=== PATIENT | female | born 1985 | race Caucasian/White ===

== ENCOUNTER 2022-11-11 02:31 | Emergency (ER) | payer OTHER, SELFPAY ==
--- NOTE | ~2022-11-11 | CT_ITS ---
EXAMINATION: CT ABDOMEN AND PELVIS WITH CONTRAST CLINICAL INFORMATION: Right upper quadrant and right flank pain. COMPARISON: None available. TECHNIQUE: Multidetector volumetric images were obtained from the superior aspect of the liver through the pubic symphysis following administration 85 mL of Omnipaque 350 intravenous contrast. Sagittal and coronal reformatted images were obtained on the technologist's workstation. Oral contrast: No This CT examination was performed using dose optimization techniques as appropriate, variously including the following: *Automated exposure control *Adjustment of mA and/or kV according to patient size (this includes techniques or standardized protocols for targeted exams where dose is matched to indication/reason for exam; i.e. extremities or head) *Use of iterative reconstruction technique DLP: 661 mGy-cm FINDINGS: LUNG BASES: The visualized lung bases are unremarkable. LIVER, GALLBLADDER, AND BILIARY TREE: The liver is normal in size, shape, and attenuation. No focal hepatic lesion. Mild intrahepatic biliary ductal dilatation is present. The gallbladder is unremarkable with no evidence of radiopaque gallstones, gallbladder wall thickening, or obvious pericholecystic inflammatory changes. PANCREAS: Unremarkable. SPLEEN: Unremarkable. ADRENAL GLANDS: Unremarkable. KIDNEYS AND URETERS: The kidneys are normal in size, shape, and attenuation. No hydronephrosis or hydroureter. 0.2 cm right midpole renal calculus is 8 cm from the posterior axillary line. BLADDER: Unremarkable. GASTROINTESTINAL TRACT: The small and large bowel are unremarkable. The appendix is unremarkable. ABDOMINAL WALL: No significant hernia is appreciated. LYMPH NODES: Normal. VASCULAR: Unremarkable. PELVIC VISCERA: The uterus and adnexa are unremarkable. OSSEOUS STRUCTURES: Unremarkable. CT/CT abdomen pelvis w IV con IMPRESSION: 1. No acute findings in the abdomen or pelvis. Mild intrahepatic biliary ductal dilatation is noted. No radiopaque gallstones are seen. 2. Nonobstructing 0.2 cm right midpole renal calculus. Fleischner guidelines were followed.
[2022-11-11 02:38] VITALS: BP 126/70; PULSE 54; RESP 16; TEMP 36.6; O2SAT 98; BMI 36.6
[2022-11-11] MEDS: Ondansetron ODT 4 MG TAB.RAPDIS TRANSLINGU (03:44)
[2022-11-11 03:55] LABS: Appearance Urine Cloudy; Color Urine Dark Yellow; Glucose Urine UA Negative (Negative); Leukocyte Esterase Urine Moderate (2+) (Negative); Nitrite Urine Negative (Negative); PH 5.5 (5.0-9.0); Specific Gravity - Urine >= 1.030 (1.005-1.025); UMIC TRIGGER UACC YES; Urine Blood Small (1+) (Negative); Urine Ketones Trace mg/dL (Negative); Urine Protein 30 (1+) mg/dL (Neg-Trace)
[2022-11-11 03:56] LABS: UPreg QC Valid YES; Urine Pregnancy NEGATIVE (NEGATIVE)
--- NOTE | 2022-11-11 03:56 | ED_ITS ---
HPI - Abdominal Pain General Chief Complaint: Back Pain/Injury Stated Complaint: nausea/vomiting Time Seen by Provider: 11/11/22 03:03 Source: patient Mode of arrival: ambulatory History of Present Illness HPI narrative: 37-year-old female without significant past medical history presents with complaints of right flank/upper back pain for 5 days though it significantly worsened this evening, she describes it as burning and denies any traumatic injury but states that it became much more worse and she began having several episodes of vomiting since 01:00 because of the pain. She denies any urinary symptoms or diarrhea. Related Data Previous Rx's Medication Instructions Recorded cefdinir 300 mg capsule 300 mg PO BID 7 days #14 caps 11/11/22 ondansetron 4 mg disintegrating 4 mg PO Q8H PRN nausea and 11/11/22 tablet vomiting #7 tabs Allergies Allergy/AdvReac Type Severity Reaction Status Date / Time Sulfa (Sulfonamide AdvReac Rash Verified 11/11/22 02:43 Antibiotics) Review of Systems Review of Systems Pertinent positives and negatives as stated in HPI PMFSH Past Medical History Source: nursing notes reviewed Social History Social History Advance Directives: No Advance Directives Information Provided: Yes Physical Exam ED Vital Signs: Vital Signs - 24 hr 11/11/22 02:38 11/11/22 04:12 11/11/22 05:57 Temperature 97.8 F 97.8 F 97.9 F Pulse Rate 54 51 54 Respiratory Rate 16 17 16 Blood Pressure 126/70 116/72 108/66 Pulse Oximetry 98 98 98 Oxygen Delivery Method Room Air Room Air Room Air BMI result Body Mass Index 36.6 VITAL SIGNS: Reviewed. GENERAL: Well developed, well nourished, in no acute distress. HEAD: Normocephalic/atraumatic EYES: PERRLA, EOMI EARS: Ext canals without abnormality LUNGS: Normal breath sounds. No adventitious sounds or accessory muscle use. SpO2<98> CARDIOVASCULAR: Regular rate and rhythm without noted murmurs ABDOMEN: Soft, right upper quadrant tenderness to palpation, White's positive, non-distended with bowel sounds, right-sided CVA tenderness MUSCULOSKELETAL: No tenderness, deformities, or effusions noted on gross inspection. EXTREMITIES: No cyanosis, clubbing or edema. SKIN: Inspection of the skin reveals no rashes NEUROLOGIC: Alert and oriented x 4. Strength and sensation to light touch were grossly intact x 4. Medical Decision Making Medical Decision Making [facility] Narrative: 37-year-old female with history and clinical presentation, DDX: Pyelonephritis, cholecystitis, renal colic, lower clinical suspicion for appendicitis or pancreatitis. INTERVENTIONS: Labs, UA/U preg, 1 L IV fluids, antiemetics, Toradol I reviewed all investigations and the hematologic indices are grossly within normal limits as there is no evidence of leukocytosis/left shift to indicate infection, there is no anemia or thrombocytopenia, taken together with the fact that patient is afebrile again lowering the likelihood of an infectious etiology. Chemistry indices demonstrate a subtle non-anion gap metabolic acidosis with a transaminemia the could be secondary to a gallstone lodged in the gallbladder duct although there is no corresponding elevation in bilirubin or elevation in alkaline phosphatase making the likelihood of fatty liver more likely. Patient denies any use of alcohol. CT scan without evidence to suggest appendicitis/renal colic/cholecystitis and otherwise my interpretation is in agreement with radiology's impression. It is my interpretation after review the urinalysis and clinical findings of CVA tenderness that patient has a pyelonephritis. Patient received initial antibiotics here in the emergency room and then was discharged on remaining course. Differential Diagnosis Differential Diagnoses: The differential diagnosis associated with the presentation includes Please see the discussion above Admission/Observation Consideration of admission/observation: Escalation of care including admission/ observation considered Please see the discussion above Lab Data [facility] Lab Attestation statement: I reviewed the patient's lab results. Please see the discussion above 11/11/22 04:10 11/11/22 04:10 Labs: Lab Results 11/11/22 11/11/22 11/11/22 Range/Units 03:45 03:45 04:10 WBC 5.9 (4.8-10.8) X10*3/uL RBC 4.13 L (4.20-5.50) X10*6/uL Hgb 12.7 (12.0-16.0) g/dl Hct 37.5 (37.0-47.0) % MCV 90.8 (80.0-98.0) fL MCH 30.8 (27.0-33.0) pg MCHC 33.9 (31.0-35.0) g/dl RDW 13.5 (11.0-16.0) % Plt Count 207 (160-400) X10*3/uL MPV 12.4 H (9.4-12.3) fL Immature Gran % (Auto) 0.2 (0.0-0.4) % Neut % (Auto) 68.3 (45-73) % Lymph % (Auto) 22.0 (20-40) % [place] % (Auto) 6.6 (2-11) % Eos % (Auto) 2.4 (0-4) % Baso % (Auto) 0.5 (0-2) % Lymph # (Auto) 1.3 (1.2-4.9) X10*3/uL [place] # (Auto) 0.4 (0.1-1.2) X10*3/uL Eos # (Auto) 0.1 (0.0-0.4) X10*3/uL Baso # (Auto) 0.0 (0.0-0.2) X10*3/uL Abs Immat Gran (auto) 0.01 (0.00-0.03) X10*3/uL Absolute Neuts (auto) 4.0 (2.0-8.3) x10*3/uL Absolute Nucleated RBC 0.000 (0.0-0.012) X10*3/uL Nucleated RBC % (auto) 0.0 (0.0-0.2) /100WBC Sodium (135-145) mmol/L Potassium (3.3-5.1) mmol/L Chloride (96-108) mmol/L Carbon Dioxide (22-29) mmol/L Anion Gap (12-20) BUN (9-16) mg/dL Creatinine (0.5-1.4) mg/dL Estim Creat Clear Calc Estimated GFR Random Glucose (60-115) mg/dL Calcium (8.4-10.2) mg/dL Total Bilirubin (0.0-1.0) mg/dL AST (5-31) U/L ALT (0-31) U/L Alkaline Phosphatase (39-117) U/L Total Protein (6.5-8.0) g/dL Albumin (3.5-5.0) g/dL Urine Color Dark Yellow Urine Appearance Cloudy Urine pH 5.5 (5.0-9.0) Ur Specific [place] >= 1.030 H (1.005-1.025) Urine Protein 30 (1+) H (Neg-Trace) mg/dL Urine Glucose (UA) Negative (Negative) mg/dL Urine Ketones Trace (Negative) mg/dL Urine Blood Small (1+) H (Negative) Urine Nitrite Negative (Negative) Ur Leukocyte Esterase Moderate (2+) H (Negative) Urine RBC 6-10 H (0-2) /HPF Urine WBC 21-50 H (0-5) /HPF Ur Squamous Epith Cells 11-20 (0-2) /HPF Calcium Oxalate Crystal Present Urine Bacteria 4+ (None Seen) Hyaline Casts 0-2 (0-2) /LPF Urine Test NEGATIVE (NEGATIVE) 11/11/22 Range/Units 04:10 WBC (4.8-10.8) X10*3/uL RBC (4.20-5.50) X10*6/uL Hgb (12.0-16.0) g/dl Hct (37.0-47.0) % MCV (80.0-98.0) fL MCH (27.0-33.0) pg MCHC (31.0-35.0) g/dl RDW (11.0-16.0) % Plt Count (160-400) X10*3/uL MPV (9.4-12.3) fL Immature Gran % (Auto) (0.0-0.4) % Neut % (Auto) (45-73) % Lymph % (Auto) (20-40) % [place] % (Auto) (2-11) % Eos % (Auto) (0-4) % Baso % (Auto) (0-2) % Lymph # (Auto) (1.2-4.9) X10*3/uL [place] # (Auto) (0.1-1.2) X10*3/uL Eos # (Auto) (0.0-0.4) X10*3/uL Baso # (Auto) (0.0-0.2) X10*3/uL Abs Immat Gran (auto) (0.00-0.03) X10*3/uL Absolute Neuts (auto) (2.0-8.3) x10*3/uL Absolute Nucleated RBC (0.0-0.012) X10*3/uL Nucleated RBC % (auto) (0.0-0.2) /100WBC Sodium 141 (135-145) mmol/L Potassium 4.2 (3.3-5.1) mmol/L Chloride 110 H (96-108) mmol/L Carbon Dioxide 19 L (22-29) mmol/L Anion Gap 16 (12-20) BUN 11 (9-16) mg/dL Creatinine 0.81 (0.5-1.4) mg/dL Estim Creat Clear Calc 103.4 Estimated GFR > 60 Random Glucose 110 (60-115) mg/dL Calcium 9.1 (8.4-10.2) mg/dL Total Bilirubin 0.9 (0.0-1.0) mg/dL AST 274 H (5-31) U/L ALT 183 H (0-31) U/L Alkaline Phosphatase 114 (39-117) U/L Total Protein 7.6 (6.5-8.0) g/dL Albumin 3.9 (3.5-5.0) g/dL Urine Color Urine Appearance Urine pH (5.0-9.0) Ur Specific [place] (1.005-1.025) Urine Protein (Neg-Trace) mg/dL Urine Glucose (UA) (Negative) mg/dL Urine Ketones (Negative) mg/dL Urine Blood (Negative) Urine Nitrite (Negative) Ur Leukocyte Esterase (Negative) Urine RBC (0-2) /HPF Urine WBC (0-5) /HPF Ur Squamous Epith Cells (0-2) /HPF Calcium Oxalate Crystal Urine Bacteria (None Seen) Hyaline Casts (0-2) /LPF Urine Test (NEGATIVE) Radiology Impression Radiologist Impression: No appendicitis, renal colic, cholecystitis, otherwise my interpretation is in agreement with radiology's impression. Medications Administered Discontinued Medications Generic Name Dose Route Start Last Admin Trade Name Freq PRN Reason Stop Dose Admin Sodium Chloride 1,000 mls @ 999 mls/hr 11/11/22 04:00 11/11/22 05:12 Ns IV 11/11/22 05:00 Infused .Q1H1M JERAMY Infusion Iohexol 85 ml 11/11/22 04:57 11/11/22 04:58 Iohexol 350 Mg/Ml 100 Ml Infus..Btl IV 11/11/22 04:58 85 ml ONCE ONE Administration Ketorolac Tromethamine 15 mg 11/11/22 04:00 11/11/22 04:16 Ketorolac Tromethamine 30 Mg/Ml Vial IVPUSH 11/11/22 04:01 15 mg ONCE ONE Administration Ondansetron HCl 4 mg 11/11/22 02:44 11/11/22 03:44 Ondansetron Odt 4 Mg Tab.Rapdis TRANSLINGU 11/11/22 02:45 4 mg ONCE ONE Administration Critical Care Time Critical Care Time Critical Care Time: Yes Total Critical Care Time: 30 Attestation: I personally attest to this time spent taking care of the patient. Discharge Plan Discharge Clinical Impression: Pyelonephritis Patient Disposition: Home, Self-Care Instructions: Kidney Infection (ED) Additional Instructions: 1. Increase the amount of water that you drink. 2. Complete the entire course of antibiotics as ordered. 3. You have also been given a prescription for antinausea medication. 4. Please follow-up with your primary care provider. Return to the ER for any worsening symptoms. Prescriptions: New cefdinir 300 mg capsule 300 mg PO BID 7 Days Qty: 14 0RF ondansetron 4 mg tablet,disintegrating 4 mg PO Q8H PRN (Reason: nausea and vomiting) Qty: 7 0RF
[2022-11-11 04:07] LABS: Bacteria Urine 4+ (None Seen); Calcium Oxalate Crystals Urine Present; Hyaline Casts Urine 0-2 /LPF (0-2); UACC Culture Trigger YES; WBC Urine 21-50 /HPF (0-5)
[2022-11-11] MEDS: 0.9 % Sodium Chloride 1,000 ML 999 ML IV (04:11)
[2022-11-11 04:12] VITALS: BP 116/72; PULSE 51; RESP 17; TEMP 36.6; O2SAT 98
[2022-11-11 04:16] LABS: MANUAL DIFF FLAG NO
[2022-11-11] MEDS: Ketorolac Tromethamine 30 MG/ML VIAL 15 MG IVPUSH (04:16)
[2022-11-11 04:17] LABS: Basophils Percent Auto 0.5 % (0-2); Eosinophils Absolute Auto 0.1 X10*3/uL (0.0-0.4); Eosinophils Percent Auto 2.4 % (0-4); Hematocrit 37.5 % (37.0-47.0); Hemoglobin 12.7 g/dl (12.0-16.0); Imm Gran Abs Auto 0.01 X10*3/uL (0.00-0.03); Imm Gran Pct Auto 0.2 % (0.0-0.4); Lymphocytes Absolute Auto 1.3 X10*3/uL (1.2-4.9); Mean Corpuscular HGB Conc 33.9 g/dl (31.0-35.0); Mean Corpuscular Hemoglobin 30.8 pg (27.0-33.0); Mean Corpuscular Volume 90.8 fL (80.0-98.0); Mean Platelet Volume 12.4 fL (9.4-12.3); Monocytes Absolute Auto 0.4 X10*3/uL (0.1-1.2); Monocytes Percent Auto 6.6 % (2-11); Neutrophils Percent Auto 68.3 % (45-73); Platelet Count 207 X10*3/uL (160-400); Red Blood Count 4.13 X10*6/uL (4.20-5.50); Red Cell Distribution Width 13.5 % (11.0-16.0); White Blood Count 5.9 X10*3/uL (4.8-10.8)
[2022-11-11 04:36] LABS: Alanine Aminotransferase 183 U/L (0-31); Albumin Level 3.9 g/dL (3.5-5.0); Alkaline Phosphatase 114 U/L (39-117); Anion Gap 16 (12-20); Aspartate Amino Transferase 274 U/L (5-31); Bilirubin Total 0.9 mg/dL (0.0-1.0); Blood Urea Nitrogen 11 mg/dL (9-16); Calcium 9.1 mg/dL (8.4-10.2); Carbon Dioxide 19 mmol/L (22-29); Chloride 110 mmol/L (96-108); Creatinine Clr Calc Pharmacy 103.4; Estimated Glomerular Filt Rate > 60; Glucose Random 110 mg/dL (60-115); Potassium 4.2 mmol/L (3.3-5.1); Sodium 141 mmol/L (135-145); Total Protein 7.6 g/dL (6.5-8.0)
[2022-11-11] MEDS: iohexoL 350 MG/ML 100 ML INFUS..BTL 85 ML IV (04:58)
[2022-11-11 05:57] VITALS: BP 108/66; PULSE 54; RESP 16; TEMP 36.6; O2SAT 98
[2022-11-11] MEDS: cefTRIAXone sodium 1 GM in 0.9 % Sodium Chloride 50 ML IV (06:38)
== END 2022-11-11 07:06 | disposition home or self-care (01) ==
PROVIDERS: Emergency Provider Student in an Organized Health Care Education/Training Program
DX: N12 Tubulo-interstitial nephritis, not specified as acute or chronic (principal); R10.2 Pelvic and perineal pain; Z79.899 Other long term (current) drug therapy
CPT/HCPCS: 36415; 74177; 80053; 81001; 81025; 85025; 87086; 96361; 96365; 96375; 99284; 99285; J0696; J1885; Q9967

== ENCOUNTER 2023-02-15 15:27 | Emergency (ER) | payer OTHER, SELFPAY ==
--- NOTE | ~2023-02-15 | US_ITS ---
EXAMINATION: US ABDOMEN LIMITED CLINICAL INFORMATION: Right upper quadrant, epigastric and flank pain. COMPARISON: CT of 11/11/2022 TECHNIQUE: Real-time imaging of the right upper quadrant abdominal viscera. FINDINGS: PANCREAS: Largely obscured by habitus and bowel gas. LIVER: Normal. The liver is normal in size. The liver contour is normal. Parenchymal echogenicity is normal. No focal hepatic lesion. There is no intrahepatic biliary duct dilatation seen. GALLBLADDER: There are multiple calculi within the gallbladder. The gallbladder wall is thickened up to 5 mm. No pericholecystic edema or sonographic White sign is evident. COMMON BILE DUCT: Normal in caliber measuring 0.4 cm in diameter. RIGHT KIDNEY: Normal. No hydronephrosis. There may be a 4 mm nonobstructing right renal mid pole calculus. (A calculus was visualized in the right mid pole on CT of 11/11/2022). The kidney measures 11.2 cm in maximum dimension. FREE FLUID: None. US/US abdomen limited IMPRESSION: 1. Cholelithiasis with gallbladder wall thickening suggesting at least chronic cholecystitis. 2. Question nonobstructing 4 mm right renal midpole calculus.
[2023-02-15 15:30] VITALS: BP 112/64; PULSE 64; RESP 16; TEMP 36.3; O2SAT 97; BMI 34.3
--- NOTE | 2023-02-15 15:30 | ED_ITS ---
HPI - Abdominal Pain General Chief Complaint: Abdominal Pain Stated Complaint: Flank pain Time Seen by Provider: 02/15/23 18:55 Source: patient Mode of arrival: ambulatory History of Present Illness HPI narrative: 37-year-old female with presentation for right flank/abdominal discomfort this started today with mild nausea but not down eyes any fevers or chills, denies any urinary symptoms. Related Data Previous Rx's Medication Instructions Recorded cefdinir 300 mg capsule 300 mg PO BID 7 days #14 caps 11/11/22 ondansetron 4 mg disintegrating 4 mg PO Q8H PRN nausea and 11/11/22 tablet vomiting #7 tabs cefdinir 300 mg capsule 300 mg PO BID 7 days #14 caps 02/15/23 ondansetron 4 mg disintegrating 4 mg PO Q8H PRN nausea and 02/15/23 tablet vomiting #10 tabs Allergies Allergy/AdvReac Type Severity Reaction Status Date / Time Sulfa (Sulfonamide AdvReac Rash Verified 11/11/22 02:43 Antibiotics) Review of Systems Review of Systems Pertinent positives and negatives as stated in HPI PMFSH Past Medical History Source: nursing notes reviewed Physical Exam ED Vital Signs: Vital Signs - 24 hr 02/15/23 15:30 02/15/23 19:28 Temperature 97.4 F Pulse Rate 64 54 Respiratory Rate 16 18 Blood Pressure 112/64 104/56 L Pulse Oximetry 97 100 Oxygen Delivery Method Room Air Room Air BMI result Body Mass Index 34.3 VITAL SIGNS: Reviewed. GENERAL: Well developed, well nourished, in no acute distress. HEAD: Normocephalic/atraumatic EYES: PERRLA, EOMI EARS: Ext canals without abnormality NOSE: Nares patent bilateral OROPHARYNX: no oral lesions noted, posterior pharynx clear NECK: Supple, no adenopathy LUNGS: Normal breath sounds. No adventitious sounds or accessory muscle use. SpO2<100> CARDIOVASCULAR: Regular rate and rhythm without noted murmurs ABDOMEN: Soft, non-tender, non-distended with bowel sounds, right CVA tenderness. MUSCULOSKELETAL: No tenderness, deformities, or effusions noted on gross inspection. EXTREMITIES: No cyanosis, clubbing or edema. SKIN: Inspection of the skin reveals no rashes NEUROLOGIC: Alert and oriented x 4. Strength and sensation to light touch were grossly intact x 4. Course Course Course Narrative: RME: 37-year-old female with a past medical history of pyelonephritis presenting to the ED complaining c/o RLQ/RUQ abd pain and R flank pain x today. +nausea denies diarrhea, urinary sx Patient on phone in triage during entire eval. Abdomen soft +RUQ/epigastric ttp Labs, UA, US ordered ordered Full HPI, ROS and PE to be performed by primary ED provider. Medical Decision Making Medical Decision Making [facility] Narrative: 37-year-old female with history and clinical presentation, DDX: Cholecystitis, pancreatitis, gastritis, renal colic, pyelonephritis. I reviewed all investigations and hematologic indices are negative for leukocytosis or left shift, no thrombocytopenia and no anemia. Chemistry indices negative for KENROY and there is no evidence of electrolyte or liver enzyme abnormalities, lipase is within normal limits and beta-hCG is undetectable. Urinalysis is significant for infection with positive nitrites and leukocyte esterase as well as bacteria and white blood cells. Ultrasound did demonstrate cholelithiasis and thickened gallbladder wall without pericholecystic fluid in so suspect that this is chronic in nature and patient will be given a referral to follow-up with General surgery for elective removal. In addition, a renal stone was noted but otherwise ultrasound negative for acute findings. My interpretation is that patient has a mild pyelonephritis given the location of the pain within nausea in the positive urinary tract infection. All results and findings discussed with her at bedside, she received initial antibiotics and then was discharged with remaining course. Differential Diagnosis Differential Diagnoses: The differential diagnosis associated with the presentation includes Please see the discussion above Admission/Observation Consideration of admission/observation: Escalation of care including admission/observation considered Please see the discussion above Lab Data [facility] Lab Attestation statement: I reviewed the patient's lab results. Please see the discussion above 02/15/23 16:40 02/15/23 16:40 Labs: Lab Results 02/15/23 02/15/23 Range/Units 16:34 16:40 WBC 9.1 (4.8-10.8) X10*3/uL RBC 3.77 L (4.20-5.50) X10*6/uL Hgb 12.0 (12.0-16.0) g/dl Hct 35.5 L (37.0-47.0) % MCV 94.2 (80.0-98.0) fL MCH 31.8 (27.0-33.0) pg MCHC 33.8 (31.0-35.0) g/dl RDW 13.7 (11.0-16.0) % Plt Count 223 (160-400) X10*3/uL MPV 12.9 H (9.4-12.3) fL Immature Gran % (Auto) 0.2 (0.0-0.4) % Neut % (Auto) 65.0 (45-73) % Lymph % (Auto) 27.0 (20-40) % [place] % (Auto) 4.8 (2-11) % Eos % (Auto) 2.6 (0-4) % Baso % (Auto) 0.4 (0-2) % Lymph # (Auto) 2.5 (1.2-4.9) X10*3/uL [place] # (Auto) 0.4 (0.1-1.2) X10*3/uL Eos # (Auto) 0.2 (0.0-0.4) X10*3/uL Baso # (Auto) 0.0 (0.0-0.2) X10*3/uL Abs Immat Gran (auto) 0.02 (0.00-0.03) X10*3/uL Absolute Neuts (auto) 5.9 (2.0-8.3) x10*3/uL Absolute Nucleated RBC 0.000 (0.0-0.012) X10*3/uL Nucleated RBC % (auto) 0.0 (0.0-0.2) /100WBC Sodium 143 (135-145) mmol/L Potassium 4.2 (3.3-5.1) mmol/L Chloride 110 H (96-108) mmol/L Carbon Dioxide 24 (22-29) mmol/L Anion Gap 13 (12-20) BUN 11 (9-16) mg/dL Creatinine 0.87 (0.5-1.4) mg/dL Estim Creat Clear Calc 100.0 Estimated GFR > 60 Random Glucose 95 (60-115) mg/dL Calcium 9.8 D (8.4-10.2) mg/dL Magnesium 2.0 (1.6-2.6) mg/dL Total Bilirubin 0.2 (0.0-1.0) mg/dL Direct Bilirubin < 0.2 (0.0-0.5) mg/dL AST 17 (5-31) U/L ALT 34 H (0-31) U/L Alkaline Phosphatase 112 (39-117) U/L Total Protein 7.6 (6.5-8.0) g/dL Albumin 4.0 (3.5-5.0) g/dL Lipase 31 (8-78) U/L Beta HCG, Quant < 2 mIU/mL Urine Color Yellow Urine Appearance Turbid Urine pH 5.5 (5.0-9.0) Ur Specific [place] 1.025 (1.005-1.025) Urine Protein Trace (Neg-Trace) mg/dL Urine Glucose (UA) Negative (Negative) mg/dL Urine Ketones Trace (Negative) mg/dL Urine Blood Negative (Negative) Urine Nitrite Positive H (Negative) Ur Leukocyte Esterase Moderate (2+) H (Negative) Urine RBC 3-5 H (0-2) /HPF Urine WBC >50 H (0-5) /HPF Ur Squamous Epith Cells >20 (0-2) /HPF Urine Bacteria 4+ (None Seen) Hyaline Casts 3-5 (0-2) /LPF Radiology Impression Discussion of test interpretation with radiology: I have reviewed the radiologist's reading. Radiologist Impression: Please see the discussion above External Record Review External record reviewed: Outpatient record, Prior outpatient labs and Prior outpatient radiology Discharge Plan Discharge Clinical Impression: Pyelonephritis, Renal calculus, Cholelithiasis Patient Disposition: Home, Self-Care Instructions: Gallstones (ED), Kidney Infection (ED) Additional Instructions: 1. Recommend [id number] Tylenol/ibuprofen as needed for pain control. Increase the amount of water intake. 2. Please complete the entire course of antibiotics as prescribed. 3. Follow-up with your primary care doctor in the next 2-3 days for re- evaluation further outpatient management. 4. You have been provided with a referral to the general surgeon regarding the stones in your gallbladder for evaluation and to schedule possible surgery. Return to the ER for any worsening of your symptoms. Prescriptions: New cefdinir 300 mg capsule 300 mg PO BID 7 Days Qty: 14 0RF ondansetron 4 mg tablet,disintegrating 4 mg PO Q8H PRN (Reason: nausea and vomiting) Qty: 10 0RF No Action cefdinir 300 mg capsule 300 mg PO BID 7 Days Qty: 14 0RF ondansetron 4 mg tablet,disintegrating 4 mg PO Q8H PRN (Reason: nausea and vomiting) Qty: 7 0RF Referrals: Esteban Fernández MD [Physician] -
[2023-02-15 16:46] LABS: MANUAL DIFF FLAG NO
[2023-02-15 16:52] LABS: Appearance Urine Turbid; Color Urine Yellow; Glucose Urine UA Negative (Negative); Leukocyte Esterase Urine Moderate (2+) (Negative); Nitrite Urine Positive (Negative); PH 5.5 (5.0-9.0); Specific Gravity - Urine 1.025 (1.005-1.025); UMIC TRIGGER UACC YES; Urine Blood Negative (Negative); Urine Ketones Trace mg/dL (Negative); Urine Protein Trace mg/dL (Neg-Trace)
[2023-02-15 16:57] LABS: Bacteria Urine 4+ (None Seen); Squamous Epithelial Cell Urine >20 /HPF (0-2); UACC Culture Trigger YES; WBC Urine >50 /HPF (0-5)
[2023-02-15 16:58] LABS: Basophils Percent Auto 0.4 % (0-2); Eosinophils Absolute Auto 0.2 X10*3/uL (0.0-0.4); Eosinophils Percent Auto 2.6 % (0-4); Hematocrit 35.5 % (37.0-47.0); Imm Gran Abs Auto 0.02 X10*3/uL (0.00-0.03); Imm Gran Pct Auto 0.2 % (0.0-0.4); Lymphocytes Absolute Auto 2.5 X10*3/uL (1.2-4.9); Mean Corpuscular HGB Conc 33.8 g/dl (31.0-35.0); Mean Corpuscular Hemoglobin 31.8 pg (27.0-33.0); Mean Corpuscular Volume 94.2 fL (80.0-98.0); Mean Platelet Volume 12.9 fL (9.4-12.3); Monocytes Absolute Auto 0.4 X10*3/uL (0.1-1.2); Monocytes Percent Auto 4.8 % (2-11); Neutrophils Absolute Auto 5.9 x10*3/uL (2.0-8.3); Platelet Count 223 X10*3/uL (160-400); Red Blood Count 3.77 X10*6/uL (4.20-5.50); Red Cell Distribution Width 13.7 % (11.0-16.0); White Blood Count 9.1 X10*3/uL (4.8-10.8)
[2023-02-15 17:10] LABS: Alanine Aminotransferase 34 U/L (0-31); Alkaline Phosphatase 112 U/L (39-117); Anion Gap 13 (12-20); Aspartate Amino Transferase 17 U/L (5-31); Bilirubin Direct < 0.2 mg/dL (0.0-0.5); Bilirubin Total 0.2 mg/dL (0.0-1.0); Blood Urea Nitrogen 11 mg/dL (9-16); Calcium 9.8 mg/dL (8.4-10.2); Carbon Dioxide 24 mmol/L (22-29); Chloride 110 mmol/L (96-108); Estimated Glomerular Filt Rate > 60; Glucose Random 95 mg/dL (60-115); Lipase 31 U/L (8-78); Potassium 4.2 mmol/L (3.3-5.1); Sodium 143 mmol/L (135-145); Total Protein 7.6 g/dL (6.5-8.0)
[2023-02-15 17:13] LABS: HCG Quantitative < 2 mIU/mL
[2023-02-15 19:28] VITALS: BP 104/56; PULSE 54; RESP 18; O2SAT 100
[2023-02-15] MEDS: cefuroxime axetiL 500 MG TABLET PO (20:17)
[2023-02-15] MEDS: Acetaminophen 325 MG TABLET 975 MG PO (20:17)
[2023-02-15] MEDS: Ibuprofen 400 MG TABLET PO (20:17)
[2023-02-15] MEDS: Ondansetron ODT 4 MG TAB.RAPDIS TRANSLINGU (20:17)
== END 2023-02-15 20:19 | disposition home or self-care (01) ==
LOC: HO.ED 20:06
PROVIDERS: Physician Assistant; Emergency Provider Student in an Organized Health Care Education/Training Program
DX: N20.0 Calculus of kidney (principal); K80.20 Calculus of gallbladder without cholecystitis without obstruction
CPT/HCPCS: 36415; 76705; 80048; 80076; 81001; 83690; 83735; 84702; 85025; 87086; 87088; 87186; 99284

== ENCOUNTER 2023-02-16 15:24 | Outpatient (AMB) | payer OTHER, SELFPAY ==
[2023-02-16 15:25] VITALS: BP 123/60; PULSE 59; BMI 33.9
--- NOTE | 2023-02-16 15:25 | A.OFFVIS_ITS ---
Intake Vital Signs 02/16/23 15:25 Height 5 ft 5 in Weight 204 lb BMI 33.9 BP 123/60 Blood Pressure Location Rt brachial Position Sitting Pulse 59 Intake Visit Reasons: Cholelithiasis, 02/15/23 [facility] [place] Intake Note: This patient presents [place] [facility] [place] for cholelithiasis. Patient c/o; reports epigastric pain radiates RUQ , reports not able to eat all of the foods she usually eats because they cause postprandial pain, reports diarrhea. 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 She went to the ER yesterday because of right upper quadrant pain and tenderness. She had an ultrasound done showing gallstones without signs of cholecystitis. Her LFTs were within normal. She was therefore instructed to see me in the office for surgical consult. She says she does not have any primary care physician at this time. She denies other medical problems. She also was diagnosed to have a UTI in her ER visit yesterday and was started on oral antibiotics She denies dysuria however. She does state that she has had episodes of pain on the right upper quadrant on and off for the past 6 months or so. [facility] Medical History (Updated 02/16/23 @ 15:50 by Rubén Stoll MD) Family history of breast cancer Morbid obesity Gallstones Surgical History (Updated 02/16/23 @ 15:32 by ASHIA Cohen) History of tubal ligation Family History Maternal Aunt Breast cancer Maternal Aunt Breast cancer Review of Systems Const Denies chills and Denies fever(s) Card Denies chest pain, Denies dyspnea and Denies dyspnea on exertion Resp Denies cough, Denies dyspnea and Denies dyspnea on exertion GI Denies hematochezia and Denies change in bowel habits Denies hematuria Musc Denies back pain and Denies limited range of motion Neuro Denies focal weakness and Denies convulsions Psych Denies depression and Denies mood swings Physical Exam Vital Signs: Last Vital Signs Pulse 59 02/16/23 15:25 BP 123/60 02/16/23 15:25 BMI result Body Mass Index 33.9 Const General: comfortable and no acute distress Orientation/consciousness: patient oriented x3 Neck Neck: Yes no lymphadenopathy Resp Auscultation: clear to auscultation bilaterally Cardio Rhythm: regular rhythm GI Other: No White's sign Palpation (GI): Soft to palpation, nontender and no guarding Neuro General: patient oriented x3 Assessment & Plan Assessment & Plan (1) Gallstones: Code(s): K80.20 - Calculus of gallbladder without cholecystitis without obstruction Plan: I explained to her the technique of laparoscopic cholecystectomy and possible conversion to an open cholecystectomy. I reviewed the risks including but not limited to bleeding, infections, injury to other organs including bowel, liver, bile ducts, retained stones, bile leak, inherent risks of anesthesia, as well as the benefits and alternatives. She understands that in view of her relative higher BMI, she presents with higher perioperative risks. She does have symptoms from her gallstones so she wants to proceed. She says that she understands the above well. (2) Morbid obesity: Code(s): E66.01 - Morbid (severe) obesity due to excess calories Plan: Her BMI is high. I had advised her on the benefits of weight loss She does not have a primary care physician at this time either so we will assist her with establishing care with 1 of our doctors. (3) Family history of breast cancer: Code(s): Z80.3 - Family history of malignant neoplasm of breast Plan: She also says that 2 of her maternal aunts were diagnosed to have breast cancer before the age of 50. I therefore explained to her the option of proceeding with genetic testing. I explained to her the potential implications of this test to herself and her family. She says she is interested so we will schedule her for genetic counseling and testing here in the office. Coding Level of Care Code New Pt Level 4 (70225) Diagnoses Gallstones K80.20 Morbid obesity E66.01 Family history of breast cancer Z80.3
== END 2023-02-16 15:45 | disposition home or self-care (01) ==
PROVIDERS: Visit Provider Surgery
DX: K80.20 Calculus of gallbladder without cholecystitis without obstruction (principal); E66.01 Morbid (severe) obesity due to excess calories; Z80.3 Family history of malignant neoplasm of breast
CPT/HCPCS: 99204

== ENCOUNTER → 2023-02-16 15:24 | Outpatient (BNVA) | payer OTHER, SELFPAY | PROVIDERS: Visit Provider Surgery | DX: K80.20 Calculus of gallbladder without cholecystitis without obstruction (principal); E66.01 Morbid (severe) obesity due to excess calories; Z68.33 Body mass index [BMI] 33.0-33.9, adult; Z80.3 Family history of malignant neoplasm of breast | CPT/HCPCS: 99202 ==

== ENCOUNTER 2023-05-25 17:39 | Emergency (ER) | payer OTHER, SELFPAY ==
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
--- NOTE | ~2023-05-25 | CT_ITS ---
EXAMINATION: CT CERVICAL SPINE WITHOUT CONTRAST CLINICAL INFORMATION: Fall COMPARISON: None available. TECHNIQUE: Axial images through the cervical spine without IV contrast. Sagittal and coronal reconstructions obtained on the technologist workstation. This CT examination was performed using dose optimization techniques as appropriate, variously including the following: *Automated exposure control *Adjustment of mA and/or kV according to patient size (this includes techniques or standardized protocols for targeted exams where dose is matched to indication/reason for exam; i.e. extremities or head) *Use of iterative reconstruction technique DLP: 489 mGy-cm FINDINGS: Bone alignment is normal. No fracture or dislocation. Normal disc spaces. Normal prevertebral soft tissues. Shotty bilateral cervical lymphadenopathy. Lung apices are clear CT/CT cervical spine wo IV con IMPRESSION: Unremarkable examination. Fleischner guidelines were followed.
[2023-05-25 18:07] VITALS: BP 126/59; PULSE 61; RESP 18; TEMP 37.3; O2SAT 100; BMI 36.6
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
[2023-05-25 19:16] VITALS: BP 120/59; PULSE 60; RESP 18; O2SAT 99
--- NOTE | 2023-05-25 19:26 | PC.NURSE ---
Assumed care of pt. Pt in no acute distress at this time,. Declined blood draw for , states had tubes tied, will sign to forgo testing for CT.
--- NOTE | 2023-05-25 19:27 | MHC.EDTECH ---
LEVY ROJAS SAID NOT TO DRAW PATIENT LABS .
--- NOTE | 2023-05-25 19:35 | MHC.EDTECH ---
Per RN hld off on lab draw
[2023-05-25 20:00] VITALS: BP 124/54; PULSE 62; RESP 18; O2SAT 99
== END 2023-05-25 22:36 | disposition home or self-care (01) ==
PROVIDERS: Emergency Provider Student in an Organized Health Care Education/Training Program
DX: S01.81XA Laceration without foreign body of other part of head, initial encounter (principal); W26.8XXA Contact with other sharp object(s), not elsewhere classified, initial encounter; Y93.89 Activity, other specified; Y92.810 Car as the place of occurrence of the external cause; Y99.9 Unspecified external cause status
CPT/HCPCS: 12011; 70450; 72125; 99284

== ENCOUNTER 2023-08-27 13:35 | Emergency (ER) | payer OTHER, SELFPAY ==
[2023-08-27 13:46] VITALS: BP 115/60; BP 130/94; PULSE 63; PULSE 68; RESP 18; TEMP 36.8; O2SAT 100; O2SAT 98; BMI 38.4
[2023-08-27 14:18] LABS: MANUAL DIFF FLAG NO
[2023-08-27 14:19] LABS: Basophils Percent Auto 0.4 % (0-2); Eosinophils Absolute Auto 0.2 X10*3/uL (0.0-0.4); Eosinophils Percent Auto 2.1 % (0-4); Hematocrit 39.6 % (37.0-47.0); Hemoglobin 13.5 g/dl (12.0-16.0); Imm Gran Abs Auto 0.02 X10*3/uL (0.00-0.03); Imm Gran Pct Auto 0.2 % (0.0-0.4); Lymphocytes Absolute Auto 1.8 X10*3/uL (1.2-4.9); Lymphocytes Percent Auto 21.7 % (20-40); Mean Corpuscular HGB Conc 34.1 g/dl (31.0-35.0); Mean Corpuscular Hemoglobin 31.3 pg (27.0-33.0); Mean Corpuscular Volume 91.7 fL (80.0-98.0); Monocytes Absolute Auto 0.4 X10*3/uL (0.1-1.2); Monocytes Percent Auto 4.3 % (2-11); Neutrophils Percent Auto 71.3 % (45-73); Platelet Count 231 X10*3/uL (160-400); Red Blood Count 4.32 X10*6/uL (4.20-5.50); White Blood Count 8.4 X10*3/uL (4.8-10.8)
[2023-08-27 14:33] LABS: Alanine Aminotransferase 9 U/L (0-31); Alkaline Phosphatase 85 U/L (39-117); Anion Gap 16 (12-20); Aspartate Amino Transferase 13 U/L (5-31); Bilirubin Total 0.4 mg/dL (0.0-1.0); Blood Urea Nitrogen 14 mg/dL (9-16); Calcium 9.4 mg/dL (8.4-10.2); Carbon Dioxide 24 mmol/L (22-29); Chloride 104 mmol/L (96-108); Creatinine Clr Calc Pharmacy 98.6; Estimated Glomerular Filt Rate > 60; Ethanol < 10 mg/dL; Glucose Random 94 mg/dL (60-115); Potassium 3.7 mmol/L (3.3-5.1); Sodium 140 mmol/L (135-145); Total Protein 8.1 g/dL (6.5-8.0)
--- NOTE | 2023-08-27 15:53 | PC.NURSE ---
pt reports that they do not take any medications at home
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
--- NOTE | 2023-08-27 16:12 | ED_ITS ---
HPI - Psych General Chief Complaint: Psychiatric Symptoms Stated Complaint: SI Time Seen by Provider: 08/27/23 14:13 Source: patient and EMS Mode of arrival: EMS Limitations: no limitations History of Present Illness HPI Narrative: Patient is a 37-year-old female who presents emergency department via EMS for evaluation. Patient reportedly made suicidal statements in front of police. When speaking with patient she reports that she has an 18-year-old son at home with her and she has 4 other sons who are currently in DCF care. Reportedly have been in DCF care for the past 5 years and she has gone back and forth with having custody and then having them taken away again. She states that she was advised by her corporation lawyer that she has an upcoming court date for Tuesday. However, she received a phone call from her 13-year-old son yesterday who told her that he and his brothers are being put up for adoption and this really upset her. Patient does admit that she made a statement to her 18-year-old son today saying ?I love you but you would be better off without me?. She states that she was on the phone today with the crisis line due to her depressions and suicidal thoughts, while speaking with them she heard a knock at the door she put the phone down and police were at the door. She states she does not know who called police. At this time she denies having suicidal ideations, however during nursing triage she did admit to suicidal ideations with a plan but did not disclose that plan. She denies homicidal ideations. She denies any drug or alcohol usage. Related Data Allergies Allergy/AdvReac Type Severity Reaction Status Date / Time Sulfa (Sulfonamide AdvReac Unknown Rash Verified 08/27/23 13:52 Antibiotics) Review of Systems 2 Review of Systems: Yes all other systems are reviewed and are negative PMFSH Past Medical History Attestation statement: The following information was validated with the patient. Source: old records reviewed Medical History Family history of breast cancer Morbid obesity Gallstones Surgical History History of tubal ligation Family History Family History Maternal Aunt Breast cancer Maternal Aunt Breast cancer Social History Social History Advance Directives: No Advance Directives Information Provided: No Do you have a plan to hurt others: No Plan Physical Exam 2 Vital Signs: Vital Signs: Last Vital Signs Temp 98.3 F 08/27/23 13:46 Pulse 63 08/27/23 13:46 Resp 18 08/27/23 13:46 BP 115/60 08/27/23 13:46 Pulse Ox 98 08/27/23 13:46 O2 Del Method Room Air 08/27/23 13:46 BMI result Body Mass Index 38.4 Appearance: Alert.?Oriented to person, place and time. No acute distress.?Normal affect. Eyes: Pupils equal, round and reactive to light.? ENT: Pharynx normal.?? Neck: Normal inspection.? Neck supple.?? CVS: Heart sounds normal. Normal heart rate and rhythm.? Pulses normal.?? Respiratory: No respiratory distress.? Lung sounds clear to auscultation bilaterally?? Abdomen: Soft and non-tender. Normoactive bowel sounds. Skin: Skin warm and dry.? Normal skin color.? Extremities: No lower extremity edema.? ? Neuro: Moves all extremities spontaneously. Sensation intact bilaterally. CN II- XII intact. No focal neuro deficits. Ambulates with normal steady gait. Course Reevaluation(s) Reevaluation #1: Discussed with the care team who report the patient is no longer suicidal and is requesting discharge home. She will stay with her brother. I discussed the patient myself and she feels comfortable with discharge and states to me that she has also not suicidal. She will return for any new or worsening symptoms Time: 19:01 Medical Decision Making Medical Decision Making MDM Narrative: Patient is a 37-year-old female presenting to emergency department via EMS for evaluation of suicidal ideations as per HPI. At the time of my evaluation she is calm and cooperative. Denying suicidal ideations but admits to having these feelings earlier. She does admit to having increased stressors as per HPI. Serum labs were obtained for medical clearance CBC is without leukocytosis anemia or thrombocytopenia. No electrolyte derangement. No KENROY. Transaminases within normal range. She is medically cleared to be evaluated by care team for safe disposition planning determination as to whether inpatient psychiatric services are required. She will be placed in physician observation so that this assessment can ensue. Differential Diagnosis Differential Diagnoses: The differential diagnosis associated with the presentation includes (Suicidal ideation, anxiety, depression) Admission/Observation Consideration of admission/observation: Escalation of care including admission/observation considered (See narrative above) Consult Healthcare Provider Management of the patient was discussed with: Behavioral Health Provider (Care team) Lab Data MDM Lab Attestation statement: I reviewed the patient's lab results. (See narrative above) 08/27/23 14:12 08/27/23 14:12 Labs: Lab Results 08/27/23 08/27/23 Range/Units 14:12 16:00 WBC 8.4 (4.8-10.8) X10*3/uL RBC 4.32 (4.20-5.50) X10*6/uL Hgb 13.5 (12.0-16.0) g/dl Hct 39.6 (37.0-47.0) % MCV 91.7 (80.0-98.0) fL MCH 31.3 (27.0-33.0) pg MCHC 34.1 (31.0-35.0) g/dl RDW 13.0 (11.0-16.0) % Plt Count 231 (160-400) X10*3/uL MPV 12.0 (9.4-12.3) fL Immature Gran % (Auto) 0.2 (0.0-0.4) % Neut % (Auto) 71.3 (45-73) % Lymph % (Auto) 21.7 (20-40) % [place] % (Auto) 4.3 (2-11) % Eos % (Auto) 2.1 (0-4) % Baso % (Auto) 0.4 (0-2) % Lymph # (Auto) 1.8 (1.2-4.9) X10*3/uL [place] # (Auto) 0.4 (0.1-1.2) X10*3/uL Eos # (Auto) 0.2 (0.0-0.4) X10*3/uL Baso # (Auto) 0.0 (0.0-0.2) X10*3/uL Abs Immat Gran (auto) 0.02 (0.00-0.03) X10*3/uL Absolute Neuts (auto) 6.0 (2.0-8.3) x10*3/uL Absolute Nucleated RBC 0.000 (0.0-0.012) X10*3/uL Nucleated RBC % (auto) 0.0 (0.0-0.2) /100WBC Sodium 140 (135-145) mmol/L Potassium 3.7 (3.3-5.1) mmol/L Chloride 104 (96-108) mmol/L Carbon Dioxide 24 (22-29) mmol/L Anion Gap 16 (12-20) BUN 14 (9-16) mg/dL Creatinine 0.84 (0.5-1.4) mg/dL Estim Creat Clear Calc 98.6 Estimated GFR > 60 Random Glucose 94 (60-115) mg/dL Calcium 9.4 (8.4-10.2) mg/dL Total Bilirubin 0.4 (0.0-1.0) mg/dL AST 13 (5-31) U/L ALT 9 (0-31) U/L Alkaline Phosphatase 85 (39-117) U/L Total Protein 8.1 H (6.5-8.0) g/dL Albumin 4.0 (3.5-5.0) g/dL Urine Color Yellow Urine Appearance Turbid Urine pH 5.5 (5.0-9.0) Ur Specific [place] >= 1.030 H (1.005-1.025) Urine Protein Trace (Neg-Trace) mg/dL Urine Glucose (UA) Negative (Negative) mg/dL Urine Ketones Negative (Negative) mg/dL Urine Blood Negative (Negative) Urine Nitrite Negative (Negative) Ur Leukocyte Esterase Moderate (2+) H (Negative) Urine RBC 0-2 (0-2) /HPF Urine WBC 21-50 H (0-5) /HPF Ur Squamous Epith Cells >20 (0-2) /HPF Urine Bacteria 4+ (None Seen) Hyaline Casts 0-2 (0-2) /LPF Urine Test NEGATIVE (NEGATIVE) Urine Opiates Screen Not Detected (Not Detect) Ur Buprenorphine Scrn Not Detected (Not Detect) ng/mL Ur Oxycodone Screen Not Detected (Not Detect) ng/mL Urine Methadone Screen Not Detected (Not Detect) ng/mL Urine Fentanyl Screen Not Detected (Not Detect) Ur Barbiturates Screen Not Detected (Not Detect) Ur Phencyclidine Scrn Not Detected (Not Detect) Ur Amphetamines Screen Not Detected (Not Detect) U Benzodiazepines Scrn Not Detected (Not Detect) Urine Cocaine Screen Not Detected (Not Detect) U Marijuana (THC) Screen Not Detected (Not Detect) Ethyl Alcohol < 10 mg/dL Independent Historian Clinical information obtained from an independent historian. History obtained from or confirmed by: EMS External Record Review External record reviewed: Outpatient record Discharge Plan Discharge Clinical Impression: Suicidal ideation Patient Disposition: Home, Self-Care Instructions: Suicide Prevention (ED) Additional Instructions: Follow all the instructions of the care team Return for any new or worsening symptoms, especially thoughts of harming yourself Interventions: [place]-Suicide Risk Severity Scale Last Done: 08/27/23 15:54 Print Language: New Zealander
[2023-08-27 16:27] LABS: Appearance Urine Turbid; Color Urine Yellow; Glucose Urine UA Negative (Negative); Leukocyte Esterase Urine Moderate (2+) (Negative); Nitrite Urine Negative (Negative); PH 5.5 (5.0-9.0); Specific Gravity - Urine >= 1.030 (1.005-1.025); UMIC TRIGGER UACC YES; Urine Blood Negative (Negative); Urine Ketones Negative (Negative); Urine Protein Trace mg/dL (Neg-Trace)
[2023-08-27 16:33] LABS: UPreg QC Valid YES; Urine Pregnancy NEGATIVE (NEGATIVE)
[2023-08-27 16:38] LABS: Amphetamine Screen Urine Not Detected (Not Detect); Barbiturates, Urine Not Detected (Not Detect); Benzodiazepines Screen Urine Not Detected (Not Detect); Buprenorphine Scr Not Detected (Not Detect); Cannabinoid Screen Urine Not Detected (Not Detect); Cocaine Screen Urine Not Detected (Not Detect); Fentanyl, urine Not Detected (Not Detect); Methadone Screen, Urine Not Detected (Not Detect); Opiate Screen Urine Not Detected (Not Detect); Oxycodone Screen Urine Not Detected (Not Detect); Phencyclidine Screen Urine Not Detected (Not Detect)
[2023-08-27 18:35] LABS: Bacteria Urine 4+ (None Seen); Hyaline Casts Urine 0-2 /LPF (0-2); Squamous Epithelial Cell Urine >20 /HPF (0-2); UACC Culture Trigger YES; WBC Urine 21-50 /HPF (0-5)
[2023-08-27 18:45] LABS: RBC Urine 0-2 /HPF (0-2)
[2023-08-27 19:21] VITALS: BP 124/76; PULSE 80; RESP 16; TEMP 36.6; O2SAT 98
== END 2023-08-27 19:37 | disposition home or self-care (01) ==
PROVIDERS: Emergency Provider Student in an Organized Health Care Education/Training Program
DX: R45.851 Suicidal ideations (principal); Z62.890 Parent-child estrangement NEC
CPT/HCPCS: 36415; 80053; 80307; 81001; 81025; 85025; 87086; 99284; S9485

== ENCOUNTER 2024-02-21 19:16 | Emergency (ER) | payer OTHER, SELFPAY ==
--- NOTE | ~2024-02-21 | CT_ITS ---
EXAMINATION: CT ABDOMEN AND PELVIS WITHOUT CONTRAST CLINICAL INFORMATION: Right flank pain, history of stones COMPARISON: 11/11/2022 TECHNIQUE: Multidetector volumetric imaging was performed from the superior aspect of the liver through the pubic symphysis. Sagittal and coronal reformatted images were obtained on the technologist's workstation. This CT examination was performed using dose optimization techniques as appropriate, variously including the following: *Automated exposure control *Adjustment of mA and/or kV according to patient size (this includes techniques or standardized protocols for targeted exams where dose is matched to indication/reason for exam; i.e. extremities or head) *Use of iterative reconstruction technique DLP: 569 mGy-cm FINDINGS: LUNG BASES: Unremarkable. ABDOMINAL AND PELVIC WALL: Unremarkable. LIVER AND BILIARY TREE: Unremarkable. GALLBLADDER: Unremarkable. PANCREAS: Unremarkable. SPLEEN: Unremarkable. ADRENAL GLANDS: Unremarkable. KIDNEYS AND URETERS: Nonobstructing right renal stone. GASTROINTESTINAL TRACT: Unremarkable. Appendix is within normal limits. VASCULAR: Unremarkable LYMPH NODES/PERITONEUM: No lymphadenopathy. FREE FLUID: None. BLADDER: Unremarkable. PELVIC VISCERA: Unremarkable. OSSEOUS STRUCTURES: Unremarkable. CT/CT abdomen pelvis wo IV con IMPRESSION: Nonobstructing right renal stone. No hydronephrosis. Electronically signed by: Val Dent MD 02/21/2024 09:08 PM [facility]
[2024-02-21 19:21] VITALS: BP 118/63; PULSE 51; RESP 16; TEMP 36.9; O2SAT 98; BMI 32.3
--- NOTE | 2024-02-21 19:26 | ED.FEMALEGU ---
HPI - Female Genitourinary General Chief complaint: Urogenital-Female Stated complaint: Flank pain Time Seen by Provider: 02/22/24 01:27 Source: patient Mode of arrival: ambulatory Limitations: no limitations History of Present Illness ED Provider: Dr. Yoko Lopez HPI Narrative: Patient comes to the emergency room complaining of right-sided flank pain for almost 20 hours. Patient denies any hematuria or dysuria. Patient states that she has had kidney stones in the past and feels similar. Complaining of nausea and vomiting, no diarrhea. Denies fever chills Related Data Previous Rx's ?Medication ?Instructions ?Recorded ketorolac 10 mg tablet 10 mg PO Q8H PRN pain #10 tabs 02/22/24 Allergies Allergy/AdvReac Type Severity Reaction Status Date / Time Sulfa (Sulfonamide AdvReac Unknown Rash Verified 02/21/24 19:23 Antibiotics) Review of Systems Review of Systems: Constitutional : No Weight loss, No Fever, No Chills, No Night Sweats, No Fatigue, No Malaise ENT/Mouth : No Hearing loss, No Ear Pain, No Nasal Congestion, No Sinus Pain, No Hoarseness, No sore throat, No Rhinorrhea, No Swallowing Difficulty Eyes: No Eye Pain, No Swelling, No Redness, No Foreign Body, No Discharge, No Vision Changes Cardiovascular : No Chest Pain, No SOB, No Dyspnea on Exertion, No Orthopnea, No Edema, No Palpitations Respiratory : No Cough, No Sputum, No Wheezing, No Smoke Exposure, No Dyspnea Gastrointestinal : Complaining of nausea and vomiting, No Diarrhea, No Constipation, No abdominal Pain, No Hematochezia, No Melena Genitourinary : no irregular bleeding, No Dysuria, No Urinary Frequency, No Hematuria, No Urinary Incontinence, No Urgency, complaining of right-sided Flank Pain, No Urinary Flow Changes, No Hesitancy Musculoskeletal : No joint pain, No Myalgias, No Joint Swelling Skin : No Skin Lesions, No rash Neuro : No Weakness, No Numbness, No Paresthesias, No Loss of Consciousness, No Dizziness, No Headache Psych : No Anxiety/Panic, No Depression, No SI/HI/AH/VH, No Social Issues, Heme/Lymph: No Bruising, No Bleeding,No Lymphadenopathy Endocrine : No Polyuria, No Polydipsia, No Temperature Intolerance [facility] Past Medical History Medical History Family history of breast cancer Morbid obesity Gallstones Surgical History History of tubal ligation Family History Family History Maternal Aunt Breast cancer Maternal Aunt Breast cancer Social History Social History Smoked in Last 30 Days: No Use of substances other than those prescribed or required for medical reasons: No Advance Directives: No Advance Directives Information Provided: No Patient : No Physical Exam Vital Signs: Vital Signs: Last Vital Signs Temp 98.7 F 02/22/24 02:10 Pulse 47 L 02/22/24 02:10 Resp 16 02/22/24 02:10 BP 130/64 02/22/24 02:10 Pulse Ox 99 02/22/24 02:10 O2 Del Method Room Air 02/22/24 02:10 BMI result Body Mass Index 32.3 Const: Other: Appearance: Alert. Oriented X3. No acute distress. Eyes: Pupils equal, round and reactive to light. ENT: Pharynx normal. Neck: Normal inspection. Neck supple. No lymph nodes noted. No crepitus CVS: Normal heart rate and rhythm. Pulses normal. Normal S1 and S2 Respiratory: No respiratory distress. Breath sounds normal. No Wheezing. No rales Abdomen: Soft and nontender. No rigidity. No distention. No CVA tenderness Skin: Skin warm and dry. Normal skin color. Normal skin turgor. Extremities: No lower extremity edema. No Lacerations. No Rash Neuro: Oriented X 3. No motor deficit. No sensory deficit. Moving all extremities. No slurred speech. CN 2 through 12 grossly intact Psych: calm, cooperative, normal affect Course Course Course Narrative: This is a rapid medical exam performed by Livia Callejas NP: Additional HPI, ROS, PE not included below will be deferred to primary provider. Patient is a 38-year-old female with history of kidney stones presenting in the emergency department with complaint of nausea and vomiting since this morning as well as right flank pain. Denies urinary symptoms or fevers. Plan: labs, UA, CT Medications Administered Discontinued Medications Generic Name Dose Route Start Last Admin Trade Name Amara PRN Reason Stop Dose Admin Ketorolac Tromethamine 60 mg 02/22/24 01:53 02/22/24 02:05 Ketorolac Tromethamine 60 Mg/2 Ml Vial IM 02/22/24 01:54 60 mg ONCE ONE Administration Medical Decision Making Medical Decision Making [facility] Narrative: I discussed the labs and imaging with the patient. No acute abnormality. -my interpretation of labs: Hematology and chemistry within normal limits, hCG negative, urinalysis negative for UTI My interpretation of CT scan, no obvious kidney stone. Report: There is a nonobstructing stone in the kidney. -Discussed with the patient that eventually this kidney stone may pass but it is not a source of the pain at this time. It is possible that patient may have passed a stone? -patient was given IM ketorolac. -Patient overall feeling better. Patient is source of pain possibly musculoskeletal. Patient states that she has been doing a lot of heavy lifting at work Differential Diagnosis Differential Diagnoses: The differential diagnosis associated with the presentation includes (Pyelonephritis, ureterolithiasis, renal colic, musculoskeletal pain) Admission/Observation Consideration of admission/observation: Escalation of care including admission/observation considered (Given patient's presentation, observation was considered) Lab Data [facility] Lab Attestation statement: I reviewed the patient's lab results. 02/21/24 19:40 02/21/24 19:40 Labs: Lab Results 02/21/24 02/22/24 Range/Units 19:40 00:54 WBC 9.0 (4.8-10.8) X10*3/uL RBC 4.25 (4.20-5.50) X10*6/uL Hgb 13.4 (12.0-16.0) g/dl Hct 38.4 (37.0-47.0) % MCV 90.4 (80.0-98.0) fL MCH 31.5 (27.0-33.0) pg MCHC 34.9 (31.0-35.0) g/dl RDW 13.6 (11.0-16.0) % Plt Count 210 (160-400) X10*3/uL MPV 12.2 (9.4-12.3) fL Immature Gran % (Auto) 0.3 (0.0-0.4) % Neut % (Auto) 65.6 (45-73) % Lymph % (Auto) 24.7 (20-40) % [place] % (Auto) 6.2 (2-11) % Eos % (Auto) 2.8 (0-4) % Baso % (Auto) 0.4 (0-2) % Lymph # (Auto) 2.2 (1.2-4.9) X10*3/uL [place] # (Auto) 0.6 (0.1-1.2) X10*3/uL Eos # (Auto) 0.3 (0.0-0.4) X10*3/uL Baso # (Auto) 0.0 (0.0-0.2) X10*3/uL Abs Immat Gran (auto) 0.03 (0.00-0.03) X10*3/uL Absolute Neuts (auto) 5.9 (2.0-8.3) x10*3/uL Absolute Nucleated RBC 0.000 (0.0-0.012) X10*3/uL Nucleated RBC % (auto) 0.0 (0.0-0.2) /100WBC Sodium 140 (135-145) mmol/L Potassium 4.0 (3.3-5.1) mmol/L Chloride 109 H (96-108) mmol/L Carbon Dioxide 20 L (22-29) mmol/L Anion Gap 15 (12-20) BUN 14 (9-16) mg/dL Creatinine 0.84 (0.5-1.4) mg/dL Estim Creat Clear Calc 99.5 Estimated GFR > 60 Random Glucose 92 (60-115) mg/dL Calcium 9.9 (8.4-10.2) mg/dL Total Bilirubin 0.3 (0.0-1.0) mg/dL AST 17 (5-31) U/L ALT 13 (0-31) U/L Alkaline Phosphatase 87 (39-117) U/L Total Protein 7.7 (6.5-8.0) g/dL Albumin 4.1 (3.5-5.0) g/dL Beta HCG, Quant < 2 mIU/mL Urine Color Yellow Urine Appearance Clear Urine pH 5.5 (5.0-9.0) Ur Specific [place] >= 1.030 H (1.005-1.025) Urine Protein Negative (Neg-Trace) mg/dL Urine Glucose (UA) Negative (Negative) mg/dL Urine Ketones Trace (Negative) mg/dL Urine Blood Negative (Negative) Urine Nitrite Negative (Negative) Ur Leukocyte Esterase Small (1+) H (Negative) Urine RBC 0-2 (0-2) /HPF Urine WBC 0-5 (0-5) /HPF Ur Squamous Epith Cells 3-5 (0-2) /HPF Urine Bacteria Trace (None Seen) Hyaline Casts 0-2 (0-2) /LPF Independent Interpretation I performed an independent interpretation of an: CT Scan Radiology Impression Discussion of test interpretation with radiology: I have reviewed the radiologist's reading. Radiologist Impression: [address] [address] [address] Scan Report Signed Patient: Faviola Murphy MR#: [id number] : 1985 Acct:[id number] Age/Sex: 38 / F ADM Date: 02/21/24 Loc: HO.ED Attending Dr: Ordering Physician: Yumi Callejas NP Date of Service: 02/21/24 Procedure(s): CT abdomen pelvis wo IV con Accession Number(s): [id number] cc: Physician,None ; Yumi Callejas NP~ EXAMINATION: CT ABDOMEN AND PELVIS WITHOUT CONTRAST CLINICAL INFORMATION: Right flank pain, history of stones COMPARISON: 11/11/2022 TECHNIQUE: Multidetector volumetric imaging was performed from the superior aspect of the liver through the pubic symphysis. Sagittal and coronal reformatted images were obtained on the technologist's workstation. This CT examination was performed using dose optimization techniques as appropriate, variously including the following: *Automated exposure control *Adjustment of mA and/or kV according to patient size (this includes techniques or standardized protocols for targeted exams where dose is matched to indication/reason for exam; i.e. extremities or head) *Use of iterative reconstruction technique DLP: 569 mGy-cm FINDINGS: LUNG BASES: Unremarkable. ABDOMINAL AND PELVIC WALL: Unremarkable. LIVER AND BILIARY TREE: Unremarkable. GALLBLADDER: Unremarkable. PANCREAS: Unremarkable. SPLEEN: Unremarkable. ADRENAL GLANDS: Unremarkable. KIDNEYS AND URETERS: Nonobstructing right renal stone. GASTROINTESTINAL TRACT: Unremarkable. Appendix is within normal limits. VASCULAR: Unremarkable LYMPH NODES/PERITONEUM: No lymphadenopathy. FREE FLUID: None. BLADDER: Unremarkable. PELVIC VISCERA: Unremarkable. OSSEOUS STRUCTURES: Unremarkable. CT/CT abdomen pelvis wo IV con IMPRESSION: Nonobstructing right renal stone. No hydronephrosis. Critical Care Time Critical Care Time Critical Care Time: Yes Total Critical Care Time: 35 Attestation: I have personally provided critical care time. Time includes review of lab data, radiology results, discussion with consultants, and monitoring for potential decompensation. Intervention performed as documented. Discharge Plan Discharge Clinical Impression: Acute flank pain Patient Disposition: Home, Self-Care Instructions: Abdominal Pain (ED) Additional Instructions: Please follow-up with your primary care physician tomorrow. If you have any worsening or new symptoms, please return to the emergency room or call 911 Prescriptions: New ketorolac 10 mg tablet 10 mg PO Q8H PRN (Reason: pain) Qty: 10 0RF Rx Instructions: maximum total duration of 5 days from all oral, intranasal, or parenteral formulations Interventions: ED Discharge Assessment Last Done: 02/22/24 02:10 Discharge Date/Time: 02/22/24 02:18 Print Language: Setswana
[2024-02-21 19:44] LABS: MANUAL DIFF FLAG NO
[2024-02-21 19:45] LABS: Basophils Percent Auto 0.4 % (0-2); Eosinophils Absolute Auto 0.3 X10*3/uL (0.0-0.4); Eosinophils Percent Auto 2.8 % (0-4); Hematocrit 38.4 % (37.0-47.0); Hemoglobin 13.4 g/dl (12.0-16.0); Imm Gran Abs Auto 0.03 X10*3/uL (0.00-0.03); Imm Gran Pct Auto 0.3 % (0.0-0.4); Lymphocytes Absolute Auto 2.2 X10*3/uL (1.2-4.9); Lymphocytes Percent Auto 24.7 % (20-40); Mean Corpuscular HGB Conc 34.9 g/dl (31.0-35.0); Mean Corpuscular Hemoglobin 31.5 pg (27.0-33.0); Mean Corpuscular Volume 90.4 fL (80.0-98.0); Mean Platelet Volume 12.2 fL (9.4-12.3); Monocytes Absolute Auto 0.6 X10*3/uL (0.1-1.2); Monocytes Percent Auto 6.2 % (2-11); Neutrophils Absolute Auto 5.9 x10*3/uL (2.0-8.3); Neutrophils Percent Auto 65.6 % (45-73); Platelet Count 210 X10*3/uL (160-400); Red Blood Count 4.25 X10*6/uL (4.20-5.50); Red Cell Distribution Width 13.6 % (11.0-16.0)
[2024-02-21 20:06] LABS: Alanine Aminotransferase 13 U/L (0-31); Albumin Level 4.1 g/dL (3.5-5.0); Alkaline Phosphatase 87 U/L (39-117); Anion Gap 15 (12-20); Aspartate Amino Transferase 17 U/L (5-31); Bilirubin Total 0.3 mg/dL (0.0-1.0); Blood Urea Nitrogen 14 mg/dL (9-16); Calcium 9.9 mg/dL (8.4-10.2); Carbon Dioxide 20 mmol/L (22-29); Chloride 109 mmol/L (96-108); Creatinine Clr Calc Pharmacy 99.5; Estimated Glomerular Filt Rate > 60; Glucose Random 92 mg/dL (60-115); HCG Quantitative < 2 mIU/mL; Sodium 140 mmol/L (135-145); Total Protein 7.7 g/dL (6.5-8.0)
[2024-02-22 00:38] VITALS: BP 131/63; PULSE 50; RESP 20; TEMP 36.8; O2SAT 98
[2024-02-22 01:00] LABS: Appearance Urine Clear; Color Urine Yellow; Glucose Urine UA Negative (Negative); Leukocyte Esterase Urine Small (1+) (Negative); Nitrite Urine Negative (Negative); PH 5.5 (5.0-9.0); Specific Gravity - Urine >= 1.030 (1.005-1.025); UMIC TRIGGER UACC YES; Urine Blood Negative (Negative); Urine Ketones Trace mg/dL (Negative); Urine Protein Negative (Neg-Trace)
[2024-02-22 01:12] LABS: Bacteria Urine Trace (None Seen); Hyaline Casts Urine 0-2 /LPF (0-2); RBC Urine 0-2 /HPF (0-2); UACC Culture Trigger YES; WBC Urine 0-5 /HPF (0-5)
[2024-02-22 02:00] VITALS: BP 130/64; PULSE 47; RESP 16; TEMP 37.1; O2SAT 99
[2024-02-22] MEDS: Ketorolac Tromethamine 60 MG/2 ML VIAL IM (02:05)
[2024-02-22 02:10] VITALS: BP 130/64; PULSE 47; RESP 16; TEMP 37.1; O2SAT 99
== END 2024-02-22 02:18 | disposition home or self-care (01) ==
PROVIDERS: Registered Nurse Emergency; Emergency Provider Emergency Medicine
DX: R10.2 Pelvic and perineal pain (principal); R11.2 Nausea with vomiting, unspecified; Z79.899 Other long term (current) drug therapy
CPT/HCPCS: 36415; 74176; 80053; 81001; 81003; 84702; 85025; 87086; 96372; 99284; J1885

== ENCOUNTER 2025-01-05 08:02 | Emergency (ER) | payer OTHER, SELFPAY ==
--- NOTE | ~2025-01-05 | CT_ITS ---
CLINICAL HISTORY: ?incarcerated umbilicul hernia, pain swelling leak CT abdomen and pelvis with contrast Comparison: CT/SR - CT ABDOMEN PELVIS WITHOUT IV CONTRAST - 02/21/24 20:16 EST Findings: No consolidation or effusion. There is a 3 mm nonobstructive calculus within the right kidney. No ureteral calculus or hydronephrosis. Remaining abdominal organs are unremarkable. There is mild dilatation of the common bile duct, new since the prior study. There are no calcified gallstones. There is no evidence of umbilical hernia. Visualized bowel is unremarkable. No edema or obstruction. 4.7 x 4.4 x 2.9 cm complex mass within the retro umbilical soft tissues. This contains a 1.7 cm pocket of fluid. No associated gas. Mild edema of adjacent soft tissues. 2.7 cm right ovarian cyst, compatible with a physiologic cyst. Remaining pelvic contents are unremarkable. The appendix is normal. No acute fracture. IMPRESSION: 1. 4.7 cm complex mass containing fluid within the retro umbilical soft tissues, most likely representing a thick walled abscess. 2. There is new mild common bile duct dilatation. Recommend correlation with laboratory data to help exclude an obstructive process. 3. There is a tiny nonobstructive calculus within the right kidney. This document has been electronically signed by: Lulu Charles MD on 01/05/2025 13:25:27
[2025-01-05 08:04] VITALS: BP 160/68; PULSE 71; RESP 16; TEMP 36.1; O2SAT 97; BMI 33.7
[2025-01-05 08:18] VITALS: BP 160/68; PULSE 71; RESP 16; TEMP 36.1; O2SAT 97
--- NOTE | 2025-01-05 08:19 | ED.ABDPAIN ---
HPI - Abdominal Pain General Chief Complaint: Skin/Abscess/Foreign Body Stated Complaint: bump on belly button Time Seen by Provider: 01/05/25 08:15 Source: patient Mode of arrival: ambulatory Limitations: no limitations History of Present Illness ED Provider: Jessica Hewitt APRN HPI narrative: 39 yo female with history of renal colic presents to the ER with complaints of redness, swelling and yellow drainage from umbilicus since Tuesday. Patient reports she has had some swelling around her umbilicus for some time but she has always been able to press on the area and it would seem to reduce. However, since tuesday this area is more swollen and she is unabe to manipulate it. She report this is associated with redness, swelling, drainage, abdominal pain around the site and nausea. No fevers, chills, vomiting, diarrhea. Has history of tubal ligation. LMP 01/02. Related Data Previous Rx's ?Medication ?Instructions ?Recorded ketorolac 10 mg tablet 10 mg PO Q8H PRN pain #10 tabs 02/22/24 doxycycline monohydrate 100 mg 100 mg PO BID #20 caps 01/05/25 capsule ibuprofen 800 mg tablet 800 mg PO Q8H PRN pain #30 tabs 01/05/25 Allergies Allergy/AdvReac Type Severity Reaction Status Date / Time Sulfa (Sulfonamide AdvReac Unknown Rash Verified 01/05/25 08:07 Antibiotics) Review of Systems Review of Systems Yes all other systems are reviewed and are negative Constitutional: Reports no additional constitutional complaints, Denies body ache(s), Denies chills, Denies fever(s), Denies headache(s) and Denies weakness Eyes: Reports no additional eye complaints and Denies change in vision Reports system reviewed and no additional complaints, except as documented, Denies dizziness, Denies headache(s), Denies nasal congestion, Denies nasal discharge and Denies neck pain Cardiovascular: Reports no additional cardiovascular complaints, Denies chest pain, Denies leg edema and Denies dyspnea Respiratory: Reports no additional respiratory complaints, Denies cough and Denies dyspnea Gastrointestinal: Reports no additional gastrointestinal complaints, Reports abdominal pain, Denies diarrhea, Reports nausea and Denies vomiting Genitourinary: Reports no additional female genitourinary complaints and Denies urinary incontinence Musculoskeletal: Reports no additional musculoskeletal complaints, Denies back pain, Denies arthralgias, Denies joint swelling, Denies neck pain, Denies numbness and Denies tingling Skin/Breast: Reports system reviewed and no additional complaints, except as docu, Reports swelling, Reports erythema and Denies rash Reports system reviewed and no additional complaints, except as documented, Denies Abnormal speech present, Denies dizziness, Denies headache(s), Denies numbness, Denies tingling and Denies weakness PMFSH Past Medical History Attestation statement: The following information was validated with the patient. Source: old records reviewed and nursing notes reviewed Medical History Family history of breast cancer Morbid obesity Gallstones Surgical History History of tubal ligation Family History Family History Maternal Aunt Breast cancer Maternal Aunt Breast cancer Social History Social History Alcohol intake: current Smoked in Last 30 Days: No Use of substances other than those prescribed or required for medical reasons: No Advance Directives: No Advance Directives Information Provided: Yes Do you have a plan to hurt others: No Plan Patient : No Physical Exam ED Vital Signs: Vital Signs - 24 hr 01/05/25 08:04 01/05/25 08:18 01/05/25 11:50 Temperature 97.0 F 97.0 F 97.5 F Pulse Rate 71 71 67 Respiratory Rate 16 16 18 Blood Pressure 160/68 H 160/68 H 103/53 L Pulse Oximetry 97 97 97 Oxygen Delivery Method Room Air Room Air Room Air 01/05/25 12:43 01/05/25 12:45 01/05/25 14:57 Temperature 0 F L Pulse Rate 62 61 Respiratory Rate 18 16 18 Blood Pressure 103/63 111/55 L Pulse Oximetry 99 99 Oxygen Delivery Method Room Air Room Air BMI result Body Mass Index 33.7 Const General: cooperative, healthy appearing, comfortable and no acute distress Orientation/consciousness: patient oriented x3 Limitations: no limitations HENMT Head: Yes normal to inspection Ears: hearing grossly normal bilaterally General nose exam: Normal external nose present Face and sinus: Yes normal facial exam Mouth: Normal oral and palatal mucosa present Throat: Yes posterior oropharynx normal Eyes General: appearance normal, both eyes and all related structures Pupils: Equal, round and reactive pupils present Neck Neck: Yes normal visual inspection Chest Chest palpation & inspection: normal inspection of the chest Resp Effort & Inspection: normal respiratory effort Auscultation: clear to auscultation bilaterally Cardio Rate: regular rate Rhythm: regular rhythm Peripheral pulses: Peripheral pulses 2+ throughout GI Other: There is TTP, unable to reduce the hernia that is present, it is firm and tender. Warm to touch Palpation (GI): Soft to palpation and nontender Auscultation: normal bowel sounds Back/Spine/Pelvis Thoracic/Lumbar Spine: thoracic and lumbar spine normal to inspection Skin General skin exam: no rashes or lesions noted Neuro General: patient oriented x3, no focal motor deficits and normal sensation to monofilament Cranial nerves: Yes Equal, round and reactive pupils present Cognition (Neuro): normal cognition Speech: No Abnormal speech present Gait exam (Neuro): Normal gait present Motor exam (neuro): 5/5 motor strength present throughout Extrem General: Yes normal to inspection Medical Decision Making Medical Decision Making MDM Narrative: 39 yo female with history of renal colic presents to the ER with complaints of redness, swelling and yellow drainage from umbilicus since Tuesday. Patient reports she has had some swelling around her umbilicus for some time but she has always been able to press on the area and it would seem to reduce. However, since tuesday this area is more swollen and she is unabe to manipulate it. She report this is associated with redness, swelling, drainage, abdominal pain around the site and nausea. No fevers, chills, vomiting, diarrhea. Has history of tubal ligation. LMP 01/02. On exam there is a ?umbilicul hernia present, unable to reduce, quite tender and firm with surrounding erythema/warmth. Will need labs, UA, CT A/P Epi provide analgesia, antiemetic and IVF Differential Diagnosis Differential Diagnoses: The differential diagnosis associated with the presentation includes incarcerated hernia, abdominal wall cellulitis Admission/Observation Consideration of admission/observation: Escalation of care including admission/observation considered Consult Healthcare Provider Management of the patient was discussed with: [employer] Operator Perry. Patient seen at the bedside. She attempted an aspiration. Recommended 2g cefazolin and dc home on doxycycline 100mg BID, f/u in the office. Lab Data MDM Lab Attestation statement: I reviewed the patient's lab results. 01/05/25 09:24 01/05/25 09:24 Labs: Lab Results 01/05/25 01/05/25 01/05/25 Range/Units 09:14 09:15 09:24 WBC 9.1 (4.8-10.8) X10*3/uL RBC 4.02 L (4.20-5.50) X10*6/uL Hgb 12.8 (12.0-16.0) g/dl Hct 36.5 L (37.0-47.0) % MCV 90.8 (80.0-98.0) fL MCH 31.8 (27.0-33.0) pg MCHC 35.1 H (31.0-35.0) g/dl RDW 13.8 (11.0-16.0) % Plt Count 201 (160-400) X10*3/uL MPV 11.9 (9.4-12.3) fL Immature Gran % (Auto) 0.1 (0.0-0.4) % Neut % (Auto) 67.0 (45-73) % Lymph % (Auto) 24.7 (20-40) % [place] % (Auto) 5.8 (2-11) % Eos % (Auto) 2.0 (0-4) % Baso % (Auto) 0.4 (0-2) % Lymph # (Auto) 2.3 (1.2-4.9) X10*3/uL [place] # (Auto) 0.5 (0.1-1.2) X10*3/uL Eos # (Auto) 0.2 (0.0-0.4) X10*3/uL Baso # (Auto) 0.0 (0.0-0.2) X10*3/uL Abs Immat Gran (auto) 0.01 (0.00-0.03) X10*3/uL Absolute Neuts (auto) 6.1 (2.0-8.3) x10*3/uL Absolute Nucleated RBC 0.000 (0.0-0.012) X10*3/uL Nucleated RBC % (auto) 0.0 (0.0-0.2) /100WBC Sodium 140 (135-145) mmol/L Potassium 3.7 (3.3-5.1) mmol/L Chloride 106 (96-108) mmol/L Carbon Dioxide 25 (22-29) mmol/L Anion Gap 13 (12-20) BUN 15 (9-16) mg/dL Creatinine 0.80 (0.5-1.4) mg/dL Estim Creat Clear Calc 105.7 Estimated GFR > 60 Random Glucose 91 (60-115) mg/dL Lactic Acid 0.9 (0.5-2.0) mmol/L Calcium 9.5 (8.4-10.2) mg/dL Total Bilirubin 0.5 (0.0-1.0) mg/dL Direct Bilirubin 0.2 (0.0-0.5) mg/dL AST 17 (5-31) U/L ALT 10 (0-31) U/L Alkaline Phosphatase 85 (39-117) U/L Total Protein 7.8 (6.5-8.0) g/dL Albumin 4.2 (3.5-5.0) g/dL Beta HCG, Quant < 2 mIU/mL Urine Color Yellow Urine Appearance Clear Urine pH 5.5 (5.0-9.0) Ur Specific [place] 1.025 (1.005-1.025) Urine Protein Negative (Neg-Trace) mg/dL Urine Glucose (UA) Negative (Negative) mg/dL Urine Ketones Negative (Negative) mg/dL Urine Blood Negative (Negative) Urine Nitrite Negative (Negative) Ur Leukocyte Esterase Small (1+) H (Negative) Urine RBC 0-2 (0-2) /HPF Urine WBC 11-20 H (0-5) /HPF Ur Squamous Epith Cells 11-20 (0-2) /HPF Urine Bacteria 2+ (None Seen) Hyaline Casts 0-2 (0-2) /LPF Urine Test NEGATIVE (NEGATIVE) Independent Interpretation I performed an independent interpretation of an: CT Scan Interpretation: I independently viewed the CT scan agree with the radiology report Radiology Impression Discussion of test interpretation with radiology: I have reviewed the radiologist's reading. Radiologist Impression: [address] [address] [address] Scan Report Signed Patient: Faviola Murphy MR#: [id number] : 1985 Acct:[id number] Age/Sex: 39 / F ADM Date: 01/05/25 Loc: HO.ED Attending Dr: Ordering Physician: Jessica Hewitt NP Date of Service: 01/05/25 Procedure(s): CT abdomen pelvis w IV con Accession Number(s): [id number] cc: Jessica Hewitt NP; Physician,None ~ Report Number: [id number]: Total DLP = 0.00 mGy-cm Reason for Exam: ?incarcerated umbilicul hernia, pain/swelling/leak CLINICAL HISTORY: ?incarcerated umbilicul hernia, pain swelling leak CT abdomen and pelvis with contrast Comparison: CT/SR - CT ABDOMEN PELVIS WITHOUT IV CONTRAST - 02/21/24 20:16 EST Findings: No consolidation or effusion. There is a 3 mm nonobstructive calculus within the right kidney. No ureteral calculus or hydronephrosis. Remaining abdominal organs are unremarkable. There is mild dilatation of the common bile duct, new since the prior study. There are no calcified gallstones. There is no evidence of umbilical hernia. Visualized bowel is unremarkable. No edema or obstruction. 4.7 x 4.4 x 2.9 cm complex mass within the retro umbilical soft tissues. This contains a 1.7 cm pocket of fluid. No associated gas. Mild edema of adjacent soft tissues. 2.7 cm right ovarian cyst, compatible with a physiologic cyst. Remaining pelvic contents are unremarkable. The appendix is normal. No acute fracture. IMPRESSION: 1. 4.7 cm complex mass containing fluid within the retro umbilical soft tissues, most likely representing a thick walled abscess. 2. There is new mild common bile duct dilatation. Recommend correlation with laboratory data to help exclude an obstructive process. 3. There is a tiny nonobstructive calculus within the right kidney. Medications Administered Discontinued Medications Generic Name Dose Route Start Last Admin Trade Name Freq PRN Reason Stop Dose Admin Sodium Chloride 1,000 mls @ 999 mls/hr 01/05/25 08:39 01/05/25 10:21 Ns IV 01/05/25 09:39 Infused .Q1H1M STA Infusion Cefazolin Sodium/Dextrose 2 gm in 50 mls @ 100 mls/hr 01/05/25 14:05 01/05/25 14:26 Ancef IV 01/05/25 14:34 100 mls/hr ONCE ONE Administration Iohexol 100 ml 01/05/25 10:11 01/05/25 10:11 Iohexol 350 Mg/Ml 100 Ml Infus..Btl IV 01/05/25 10:12 100 ml ONCE ONE Administration Morphine Sulfate 4 mg 01/05/25 08:39 01/05/25 09:21 Morphine Sulfate 4 Mg/Ml Cartridge IVPUSH 01/05/25 08:40 4 mg ONCE ONE Administration Protocol Morphine Sulfate 4 mg 01/05/25 12:33 01/05/25 12:45 Morphine Sulfate 4 Mg/Ml Cartridge IVPUSH 01/05/25 12:34 4 mg ONCE ONE Administration Protocol Ondansetron HCl 4 mg 01/05/25 08:39 01/05/25 09:21 Ondansetron Hcl 4 Mg/2 Ml Vial IVPUSH 01/05/25 08:40 4 mg ONCE ONE Administration Discharge Plan Discharge Clinical Impression: Abdominal wall abscess Patient Disposition: Home, Self-Care Instructions: Abscess (ED) Additional Instructions: Warm compresses several times daily next week call the surgical office on Tuesday to follow-up Return for increasing redness, swelling, fever greater than 100.4 Prescriptions: New doxycycline monohydrate 100 mg capsule 100 mg PO BID Qty: 20 0RF ibuprofen 800 mg tablet 800 mg PO Q8H PRN (Reason: pain) Qty: 30 0RF No Action ketorolac 10 mg tablet 10 mg PO Q8H PRN (Reason: pain) Qty: 10 0RF Rx Instructions: maximum total duration of 5 days from all oral, intranasal, or parenteral formulations Referrals: Shayla Stokes MD [Physician, General Surgery] - 5 days Stand Alone Forms: Work/School Release Interventions: ED Discharge Assessment Last Done: 01/05/25 14:57 Discharge Date/Time: 01/05/25 14:59 Print Language: Swedish
--- NOTE | 2025-01-05 08:19 | PC.NURSE ---
39 F presents to ED with bump/wound above belly button, red in color, no active drainage, with pain since tuesday. Pt denies any injuries that caused it but sts it hurt her more yesterday when lifitng at work. A+OX4, calm, cooperative, ambulatory. Pt denies any CP or SOB. RR even and unlabored. Pt sts pain in middle abdomen and a little to the right. 10/10 pain, nausea vomitting and diarrhea yesterday, but denies n/v at this time.
[2025-01-05 09:25] LABS: Appearance Urine Clear; Glucose Urine UA Negative (Negative); PH 5.5 (5.0-9.0); Specific Gravity - Urine 1.025 (1.005-1.025); UMIC TRIGGER UACC YES
[2025-01-05 09:33] LABS: MANUAL DIFF FLAG NO
[2025-01-05 09:34] LABS: Hematocrit 36.5 % (37.0-47.0); Hemoglobin 12.8 g/dl (12.0-16.0); Imm Gran Abs Auto 0.01 X10*3/uL (0.00-0.03); Imm Gran Pct Auto 0.1 % (0.0-0.4); Lymphocytes Absolute Auto 2.3 X10*3/uL (1.2-4.9); Mean Corpuscular HGB Conc 35.1 g/dl (31.0-35.0); Mean Corpuscular Hemoglobin 31.8 pg (27.0-33.0); Mean Corpuscular Volume 90.8 fL (80.0-98.0); NRBC Abs Auto 0.000 X10*3/uL (0.0-0.012); NRBC Pct Auto 0.0 /100WBC (0.0-0.2); Platelet Count 201 X10*3/uL (160-400); Red Blood Count 4.02 X10*6/uL (4.20-5.50); White Blood Count 9.1 X10*3/uL (4.8-10.8)
[2025-01-05 09:38] LABS: UACC Culture Trigger YES
[2025-01-05 09:40] LABS: UPreg QC Valid YES
[2025-01-05 09:57] LABS: Alanine Aminotransferase 10 U/L (0-31); Albumin Level 4.2 g/dL (3.5-5.0); Alkaline Phosphatase 85 U/L (39-117); Anion Gap 13 (12-20); Aspartate Amino Transferase 17 U/L (5-31); Blood Urea Nitrogen 15 mg/dL (9-16); Calcium 9.5 mg/dL (8.4-10.2); Carbon Dioxide 25 mmol/L (22-29); Chloride 106 mmol/L (96-108); Creatinine Clr Calc Pharmacy 105.7; Estimated Glomerular Filt Rate > 60; Potassium 3.7 mmol/L (3.3-5.1); Sodium 140 mmol/L (135-145); Total Protein 7.8 g/dL (6.5-8.0)
[2025-01-05] MEDS: iohexoL 350 MG/ML 100 ML INFUS..BTL IV (10:11)
[2025-01-05 11:50] VITALS: BP 103/53; PULSE 67; RESP 18; TEMP 36.4; O2SAT 97
[2025-01-05 12:43] VITALS: BP 103/63; PULSE 62; RESP 18; O2SAT 99
[2025-01-05 12:45] VITALS: RESP 16
--- NOTE | 2025-01-05 14:10 | P.CONGS_ITS ---
[facility] Past Medical History Medical History Family history of breast cancer Morbid obesity Gallstones Family History Family History Maternal Aunt Breast cancer Maternal Aunt Breast cancer Surgical History Surgical History History of tubal ligation Social History Social History Alcohol intake: current Smoked in Last 30 Days: No Use of substances other than those prescribed or required for medical reasons: No Advance Directives: No Advance Directives Information Provided: Yes Do you have a plan to hurt others: No Plan Patient : No Meds Allergies Allergy/AdvReac Type Severity Reaction Status Date / Time Sulfa (Sulfonamide AdvReac Unknown Rash Verified 01/05/25 08:07 Antibiotics) Active Medications: Current Medications Cefazolin Sodium/Dextrose (Ancef) 2 gm in 50 mls @ 100 mls/hr IV ONCE ONE Stop: 01/05/25 14:34 Physical Exam 2 Vital Signs: Vital Signs: Last Vital Signs Temp 97.5 F 01/05/25 11:50 Pulse 62 01/05/25 12:43 Resp 16 01/05/25 12:45 BP 103/63 01/05/25 12:43 Pulse Ox 99 01/05/25 12:43 O2 Del Method Room Air 01/05/25 12:43 BMI result Body Mass Index 33.7 Results Labs 01/05/25 09:24 01/05/25 09:24 Labs: Abnormal lab results 01/05/25 01/05/25 Range/Units 09:14 09:24 RBC 4.02 L (4.20-5.50) X10*6/uL Hct 36.5 L (37.0-47.0) % MCHC 35.1 H (31.0-35.0) g/dl Ur Leukocyte Esterase Small (1+) H (Negative) Urine WBC 11-20 H (0-5) /HPF Short CBC 01/05/25 Range/Units 09:24 WBC 9.1 (4.8-10.8) X10*3/uL Hgb 12.8 (12.0-16.0) g/dl Hct 36.5 L (37.0-47.0) % Plt Count 201 (160-400) X10*3/uL BMP 01/05/25 09:24 Sodium 140 Potassium 3.7 Chloride 106 Carbon Dioxide 25 BUN 15 Creatinine 0.80 Calcium 9.5 Liver Function 01/05/25 Range/Units 09:24 Total Bilirubin 0.5 (0.0-1.0) mg/dL Direct Bilirubin 0.2 (0.0-0.5) mg/dL AST 17 (5-31) U/L ALT 10 (0-31) U/L Alkaline Phosphatase 85 (39-117) U/L Albumin 4.2 (3.5-5.0) g/dL Urine 01/05/25 01/05/25 Range/Units 09:14 09:15 Urine Color Yellow Urine Appearance Clear Urine pH 5.5 (5.0-9.0) Ur Specific [place] 1.025 (1.005-1.025) Urine Protein Negative (Neg-Trace) mg/dL Urine Glucose (UA) Negative (Negative) mg/dL Urine Test NEGATIVE (NEGATIVE) All other labs normal. Procedures Date of Service Date of Service: 01/05/25
[2025-01-05 14:57] VITALS: BP 111/55; PULSE 61; RESP 18; TEMP -17.7; TEMP 0; O2SAT 99
== END 2025-01-05 14:59 | disposition home or self-care (01) ==
PROVIDERS: Nurse Practitioner Family; Emergency Provider Emergency Medicine
DX: L02.211 Cutaneous abscess of abdominal wall (principal); R10.2 Pelvic and perineal pain; N20.0 Calculus of kidney; N83.201 Unspecified ovarian cyst, right side; R11.0 Nausea; Z79.899 Other long term (current) drug therapy
CPT/HCPCS: 36415; 74177; 80048; 80076; 81001; 81025; 83605; 84702; 85025; 87040; 87086; 96361; 96365; 96366; 96374; 96376; 99284; J0690; J2270; J2405; Q9967

== ENCOUNTER → 2025-01-05 08:39 | Outpatient (BNV) | payer OTHER, SELFPAY | PROVIDERS: Emergency Provider Emergency Medicine; Visit Provider Radiology Diagnostic Radiology | DX: N20.0 Calculus of kidney (principal); R19.05 Periumbilic swelling, mass or lump | CPT/HCPCS: 74177 ==

== ENCOUNTER 2025-01-09 08:54 | Outpatient (AMB) | payer OTHER, SELFPAY ==
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
[2025-01-09 08:59] VITALS: BP 130/80; PULSE 64; TEMP 36.1; O2SAT 98; BMI 33.8
== END 2025-01-09 09:52 | disposition home or self-care (01) ==
LOC: HO.HMCH 08:55
PROVIDERS: Visit Provider Internal Medicine
DX: K80.20 Calculus of gallbladder without cholecystitis without obstruction (principal); E66.01 Morbid (severe) obesity due to excess calories; Z68.33 Body mass index [BMI] 33.0-33.9, adult; K42.9 Umbilical hernia without obstruction or gangrene; F32.9 Major depressive disorder, single episode, unspecified; F41.1 Generalized anxiety disorder; Z65.8 Other specified problems related to psychosocial circumstances

== ENCOUNTER 2025-01-16 09:56 | Outpatient (AMB) | payer OTHER, SELFPAY ==
[2025-01-16 10:02] VITALS: BP 132/74; PULSE 58; BMI 33.4
--- NOTE | 2025-01-16 10:02 | A.OFFVIS_ITS ---
Vital Signs 01/16/25 10:02 Height 5 ft 5 in Weight 201 lb BMI 33.4 BP 132/74 Blood Pressure Location Lt brachial Position Sitting Pulse 58 Intake Visit Reasons: Abdominal wall abscess Intake Note: This patient presents for [facility] emergency department follow-up for abdominal wall abscess. Pt c/o: completed doxycycline 100mg BID, reports wound is much better, reports no discharge. 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 She apparently went to the ER last 01/05/2025 because of redness and tenderness on the area of the umbilicus. She had a CAT scan showing what appeared to be a small abscess in the subcutaneous layer. She had undergone aspiration of this with a needle and was antibiotics. She says she has been doing much better since then. She says she had no longer has pain and tenderness. She says that this has resolved She says she is not a diabetic. She denies any fever or chills. 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 Cognitive needs: No Hearing needs: No Vision needs: Yes (Glasses) Review of Systems Const Denies chills and Denies fever(s) Card Denies chest pain, Denies dyspnea and Denies dyspnea on exertion Resp Denies cough, Denies dyspnea and Denies dyspnea on exertion GI Denies hematochezia and Denies change in bowel habits Denies hematuria Musc Denies back pain and Denies limited range of motion Neuro Denies focal weakness and Denies convulsions Psych Denies depression and Denies mood swings Physical Exam Vital Signs: Last Vital Signs Pulse 58 01/16/25 10:02 BP 132/74 01/16/25 10:02 BMI result Body Mass Index 33.4 Const General: comfortable and no acute distress Orientation/consciousness: patient oriented x3 Neck Neck: Yes no lymphadenopathy Resp Auscultation: clear to auscultation bilaterally Cardio Rhythm: regular rhythm GI Other: Small residual area of induration on the umbilicus without any redness, tenderness or fluctuance Palpation (GI): Soft to palpation, nontender and no guarding Neuro General: patient oriented x3 Assessment & Plan Assessment & Plan (1) Abdominal wall abscess: Code(s): L02.211 - Cutaneous abscess of abdominal wall Category: Medical Plan: She had pain, swelling and tenderness and redness on the umbilicus last Sept ember 20. She had a CAT scan showing what appeared to be a small abscess. Aspiration with a needle was done in the ER by Dr. Stokes The patient has says she is much improved. She denies any pain, tenderness and redness anymore. I did tell her that if she has recurrent symptoms, she is to come back to the office to be re-evaluated as she may need to have repeat I and D or formalin excision of the area She says she understands the plan well and is comfortable with this. Coding Level of Care Code New Pt Level 3 (65883) Diagnoses Abdominal wall abscess L02.211
== END 2025-01-16 10:12 | disposition home or self-care (01) ==
LOC: HO.HGS 09:57
PROVIDERS: PCP Internal Medicine; Visit Provider Surgery
DX: L02.211 Cutaneous abscess of abdominal wall (principal)
CPT/HCPCS: 99213